=== PATIENT | male | born 1990 | race Caucasian/White ===

== ENCOUNTER 2019-01-09 20:43 | Emergency (ER) | payer OTHER, SELFPAY ==
[~2019-01-09] VITALS: Ht 175.3 cm; Wt 107.9 kg
[2019-01-09 20:47] VITALS: BP 128/71
[2019-01-09] MEDS ORDERED: IBUPROFEN 200 MG TABLET ONE (21:33)
--- NOTE | 2019-01-09 21:50 | NUR ---
KNEE IMMOBILIZER/CANE PROVIDED. PT REFUSING CRUTCHES AND ICE/ELEVATION, "I HAVE THOSE AT HOME".
[2019-01-09] MEDS ORDERED: IBUPROFEN 200 MG TABLET PO ONE (22:00)
== END 2019-01-09 22:19 | disposition home or self-care (01) ==
LOC: ED 22:00
DX: S83.92XA Sprain of unspecified site of left knee, initial encounter (principal); X50.1XXA Overexertion from prolonged static or awkward postures, initial encounter; Y93.89 Activity, other specified; Y92.89 Other specified places as the place of occurrence of the external cause; Y99.8 Other external cause status
CPT/HCPCS: 29505; 99283